=== PATIENT | female | born 1945 | race Caucasian/White ===

== ENCOUNTER 2016-04-03 15:45 | Inpatient (IN) | payer MEDICARE ==
[2016-04-03] MEDS ORDERED: HumaLOG 300 UNITS/3 ML VIAL SC PRN (17:42)
[2016-04-03] MEDS ORDERED: Dextrose 50% Abboject 50 ML SYRINGE IVP PRN (17:55)
[2016-04-03] MEDS ORDERED: Dextrose 5% in Water 1,000 ML IV PRN (17:55)
[2016-04-03] MEDS: HYDROcodone/Acetaminophen 7.5/325 mg Tablet PO PRN (20:08)
[2016-04-03] MEDS ORDERED: Levemir Flexpen 100 UNITS/ML PEN SC SCH (21:00)
[2016-04-03] MEDS ORDERED: Non-Formulary Item 1 EACH (Insulin Glargine,Hum.Rec.Anlog [Lantus Solostar] 25 UNIT) SQ SCH (21:00)
[2016-04-03] MEDS: fentaNYL 50 mcg/hour Patch TD SCH (21:28)
[2016-04-03] MEDS: Gabapentin 100 MG CAP PO SCH (21:28)
--- NOTE | 2016-04-04 00:32 | HP ---
Admitted to [facility] on 04/03/2016 to extended care. CHIEF COMPLAINT: Weakness and wound on right leg. PRESENT ILLNESS: Patient is a 70-year-old white female who has a history of type 2 diabetes mellitu s that is insulin requiring, complicated by diabetic nephropathy, leaving her with severe chronic ki dney disease. She also has hypertension, history of recurrent DVTs, and pulmonary emboli for which she has been on Coumadin. She also has a history of IVC filtration device placed over 5 years ago. She has a history of chronic venous ulcer of the right lower extremity that dates back to 1995 and has never healed. Patient lives alone and has been independent of her ADLs. She has been on long-t erm Coumadin due to these recurrent DVT and pulmonary emboli. Patient was admitted to the hospital at [facility] from 03/20/2016 until 04/03/2016. She entered the hospital because of a marked prolongation of her INR with reading of 13. She had had a fall 2 days previously and had bruised her right thigh area and the right shoulder and had sustaine d a nose bleed. She also had been noticing some bleeding from the chronic ulcer on her right leg. The patient was referred to the hospital where she was admitted and the supratherapeutic INR was man aged with vitamin K and discontinuation of the Coumadin. During that admission, she initially was n oted to have a little mild hematuria and some bleeding from her wound that had stopped and nose blee d that had stopped. Also, during the admission, her severe chronic renal disease progressed with ac bridgette failure that did not respond to cautious hydration. She was also had a severe anemia of her chr onic kidney disease and also had an acidosis from the renal failure. Her programming coordinator, Dr. Tong ty had seen her on a previous admission in February for which she was discharged on 03/08/2016 for c ellulitis of her right leg. During that admission, her venous Doppler of the leg showed no evidence of DVT. She was in renal failure and severely hyperkalemic. She required dialysis one time then f or correction of the severe hyperkalemia. During that most of her hospitalization from which she wa s discharged on 04/03/2016, the chronic renal failure had progressed requiring initiation of hemodia lysis that was started on 03/28/2016. Prior to that, Dr. Duran, surgeon placed a tunneled hemodia lysis catheter in the right upper chest into the internal jugular. Also the ulcer on her right leg was biopsied and path reported that showed fragments of benign skin with granulation tissue ulcerati on. There is no dysplasia nor malignancy identified. Patient is scheduled to receive hemodialysis on Friday, Friday, and Friday, last dialysis was on today 04/03/2016, patient received 2 units of blood during the initial dialysis on 03/28/2016, she also is receiving PhosLo at is calcium acetate for her hyperparathyroidism some induced from the chronic renal failure and she is receiving Procri t 5000 units IV with her dialysis. During the hospitalization, she underwent a renal ultrasound [facility] showed kidney size normal. There was no evidence of any masses, nor evidence of any hydronephros is. She underwent an echocardiogram that showed left atrial enlargement, normal left ventricular sy stolic function, moderate mitral regurgitation, moderate tricuspid regurgitation and moderate aortic insufficiency. Her ejection fraction was 50-55%. Patient was referred to us at [facility] for further therapy due to her severe deconditioning and also for continu ed wound care. At present, the wound is being cared for with gentle cleansing and application of Aq uacel covered with a Mepilex on a daily basis. The patient was interviewed soon after her admission and was able to review with the above history w jennifer me. She said she is living at home and been doing well up until the fall and then finding out a bout this marked elevation of her INR. Patient's plans are to return to her home and live independe ntly. She said that her Coumadin has been stopped and she has not been placed on any anticoagulants due to her recommendations for now from her programming coordinator, Dr. De La Cruz. PAST MEDICAL HISTORY: See present illness. Patient has diabetes mellitus type 2 that is insulin-de pendent, complicated by nephropathy, venous insufficiency of the lower extremities, complicated by c hronic stasis dermatitis and chronic venous ulcer on the right leg since she has had since 1995. Th is has been managed in a variety of ways, different wound care. A trial of compression wraps, trial of hyperbaric treatment, and previous biopsies were negative for malignancy and most recent biopsy on 03/28/2016, negative for any malignancy. Patient says at times, she will get a little better miguel angel n she gets a little worse. Right now, she is doing better. Her swelling is better since she has be en in the hospital. Patient also has a history of recurrent DVTs of the lower extremities. This, Angie Pascual continued the dictation history and physical on Lian Marrufo, patient also has had pulmo nary embolism and has had an IVC filtration device placed over 5 years ago. She has been on Coumadi n for many years for which was stopped during this most recent admission due to the fall and the ble eding and the supratherapeutic INR. She has severe chronic kidney disease for which she required a single dialysis for hyperkalemia at the end of 02/2016 and now has been started on dialysis on , Friday and Friday on 03/28/2016 via a dialysis catheter was tunneled in the right internal jug ular. Patient has a history of pulmonary nodules for which she has been on care of Dr. Bruner, pul strategy planning consultant has had biopsies which have been negative. PET scans of these areas have not been hot. Patient has had a cholecystectomy, thyroidectomy, tubal ligation. Patient has a history of chronic low back pain from spondylosis and severe arthritis of the knees. She is under the care of Dr. Marek woods, pain management doctor and has been on Fentanyl patch for many years to help control this p ain. PRESENT MEDICINES: Simvastatin 40 mg at bedtime, Epogen 5000 units IV push Friday, Friday, and rid with her dialysis PhosLo (calcium and acetate 1334 mg t.i.d. with meals), Neurontin 100 mg t.i .d., Diflucan 100 mg first 7 days, Levemir 25 units daily at 9:00 p.m., Humalog before meals per mil d sliding scale, Procardia 60 mg daily, levothyroxine 137 mcg daily, pantoprazole 40 mg b.i.d., Rabia Lax 17 grams in 8 ounces of water daily soap, zolpidem 5 mg at bedtime, fentanyl patch 50 mcg apply to the skin and change every third day. At home, patient was using Dilaudid 4 mg every 4 hours as n eeded for pain, usually said she take 2 or 3 day as needed. During her hospitalization, she was rec eiving hydrocodone/acetaminophen 7.5/325 one every 4 hours as needed for pain and also she was recei ving cyclobenzaprine 5 mg t.i.d. p.r.n. spasms. ALLERGIES: No known allergies. REVIEW OF SYSTEMS: Patient said she has lost maybe around 15 pounds over the last few weeks. Nelda alicea said she has lost maybe 15 pounds over the last few weeks with these hospitalizations. She has h ad no fever. Head and Neck: No complaints. No problems with her eyes. Pulmonary: No shortness o f breath. Cardiovascular: No chest pain. Gastrointestinal: No nausea or vomiting, no change in b owel habits. Appetite has been good. : No complaints. Musculoskeletal: Patient said she has b een a little sore over the right shoulder and some in the neck. Initially after her fall, these wer e x-rayed and no fractures were seen. This is getting better and the bruised area on the shoulder a nd the leg are improving. ADLs: Patient is independent of her ADLs. HABITS: Alcohol none. Tobacco none. SOCIAL HISTORY: Patient is single, has a daughter who lives alone. PHYSICAL EXAMINATION: GENERAL: Shows a very pleasant 70-year-old white female, who is sitting on the edge of her bed. Sh e is alert, talkative, oriented x3, appears comfortable and in no distress. VITAL SIGNS: Shows a temperature of 97.6, pulse 78, respirations 18, O2 sat 97% on room air, blood pressure 147/89, her weight is 185. HEAD: Normocephalic and atraumatic. EYES: Pupils are equal, round, and reactive. Sclerae nonicteric. EARS: TMs are clear. NOSE: Normal. MOUTH AND THROAT: Normal. NECK: Carotids are equal and strong, no bruits. Thyroid not enlarged right upper anterior chest. Patient has a tunneled dialysis catheter with overlying dressing is surrounding the area is clean. LUNGS: Clear. HEART: Regular rate, no murmurs. ABDOMEN: Soft with no organomegaly, nor areas of tenderness. EXTREMITIES: There is no pitting edema of the lower extremities. She has chronic stasis changes wi th a slight bluish discoloration of the skin and some little scaling on the right lower leg over the junction of middle and distal third medially. She has an ovoid shape chronic wound that measures 1 x 2 cm that has a good granulation base and there is no measurable depth. There is no surrounding redness nor tenderness. NEUROLOGIC: The patient is alert and oriented x3 with generalized weakness, but no focal weakness. IMPRESSION: 1. Generalized weakness and deconditioning. 2. Acute renal failure on severe chronic kidney disease. A. Required initiation of hemodialysis on 03/28/2016 and scheduled to continue this on Friday, , and Friday. B. Complicated by anemia of chronic renal disease for which she received a transfusion of 2 units of blood on 03/28/2016 with dialysis and is receiving Epogen 5000 units with dialysis IV. C. Complicated by hyperparathyroidism for which she is on PhosLo (calcium acetate.) 3. 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 A. On Coumadin for many years and had an inferior vena cava filtration device placed greater than 5 years ago. Coumadin was stopped on 03/20/2016 due to INR of 13 and some nosebleed and mild hematur ia and bleeding from her wound on her leg. B. Her anticoagulants have not been restarted due to her recommendations of her programming coordinator. 4. Hospitalization from 03/20/2016 until 04/03/2016 at [facility] for a supratherapeutic INR of 13 requiring vitamin K and discontinuation of Coumadin, complicated by bleeding from the nos e from her leg wound and mild hematuria all that has stopped. A. Acute renal failure on severe chronic kidney disease, requiring initiation of hemodialysis on . B. Placement of tunneled hemodialysis catheter in the right internal jugular and biopsy of the righ t leg wound that was benign with no malignancy or dysplasia 03/28/2016. C. Fall with contusion of the right arm and leg, no fractures, bruising are gradually resolving. 5. Diabetes type 2, insulin requiring. A. Complicated by diabetic nephropathy. 6. Chronic venous ulcer on the right leg. A. Present stents since 1995. B. Biopsy on 03/28/2016 showed no evidence of malignancy or dysplasia with benign changes. 7. Hypercholesterolemia. 8. Hypertension. 9. Hypothyroidism. 10. Gastroesophageal reflux. 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 12. Severe arthritis of the knees. 13. Chronic pain from her spondylosis of the LS spine, severe arthritis of the knees to be under e care of Dr. Collado, pain management physician for which she has been on fentanyl and Dilaudid for breakthrough pain at home in its place. She is using the hydrocodone while in the hospital [facility] seems to be working well. PLAN: Patient has been admitted for physical therapy in an effort to try to improve her general str ength and deconditioning such that she can return to independent living and she will need to be cont inue her dialysis on MWF arrangements for transportation are being worked out. We will continue pre sent wound care to the leg and a cleansing gently applying Aquacel covered by Mepilex. We will cont inue her routine medications. We will continue her pain medication and for now, we will use a fenta nyl patch and we use a hydrocodone/acetaminophen 7.5/325 every 4 hours if needed, which seemed to crenshaw ve been working well. CODE STATUS: FULL CODE.
[2016-04-04] MEDS: HYDROcodone/Acetaminophen 7.5/325 mg Tablet PO PRN ×3 (04:21→22:45)
[2016-04-04] MEDS: Levothyroxine Sodium 112 MCG TAB PO SCH (05:44)
[2016-04-04] MEDS: Levothyroxine Sodium 25 MCG TAB PO SCH (05:44)
[2016-04-04] MEDS: Fluconazole 100 MG TAB PO SCH (08:44)
[2016-04-04] MEDS: NIFEdipine XL 30 MG TAB PO SCH (08:44)
[2016-04-04] MEDS: Gabapentin 100 MG CAP PO SCH ×3 (08:44→22:48)
[2016-04-04] MEDS: Calcium Acetate 667 MG CAP PO SCH ×3 (08:44→17:12)
[2016-04-04] MEDS ORDERED: FLU VACC TS2016-17(65YR +) 0.5 ML SYRINGE IM ONE (09:00)
[2016-04-04] MEDS ORDERED: Polyethylene Glycol 3350 17 GM Packet PO SCH (09:00)
[2016-04-04] MEDS ORDERED: Non-Formulary Item 1 EACH (Levothyroxine Sodium [Synthroid] 137 MCG) PO SCH (09:00)
[2016-04-04 09:44] LABS: Hemoglobin A1c 7.2 % (4.0-6.0)
[2016-04-04 09:46] LABS: Anion Gap 17 mmol/L (10-20); BUN (Urea Nitrogen) 23 mg/dL (9.8-20.1); Calc. Creatinine Clearance 29 mL/min (70-130); Calcium 9.7 mg/dL (7.8-10.44); Carbon Dioxide 28 mmol/L (23-31); Chloride 98 mmol/L (98-107); Estimated GFR-MDRD 20; Glucose 61 mg/dL (80-115); Potassium 3.8 mmol/L (3.5-5.1); Sodium 139 mmol/L (136-145)
[2016-04-04 09:48] LABS: Band 7 % (5-11); Hemoglobin 11.3 g/dL (12.0-16.0); Lymphocytes 12 % (21-51); MDiff Complete? YES; Mean Corpuscular HGB CONC 30.8 g/dL (32.0-36.0); Mean Corpuscular Hemoglobin 29.2 pg (27.0-31.0); Mean Corpuscular Volume 94.9 fl (81.0-99.0); Mean Platelet Volume 7.7 fL (7.4-10.4); Monocytes 9 % (0-10); Neutrophil 71 % (42-75); PLT Morphology Comment Appears Adequate; Platelet Count 182 thou/uL (130-400); RBC Distribution Width 13.8 % (11.5-14.5); Red Blood Cell (RBC) Count 3.87 mill/uL (4.20-5.40); White Blood Cell (WBC) Count 7.1 thou/uL (4.8-10.8)
--- NOTE | 2016-04-04 12:15 | PRG ---
DATE OF SERVICE: 04/04/2016 SUBJECTIVE: The patient said she did not rest well last night. She did not ask her Ambien to help her sleep, it was too late. The patient said this morning she feels okay. Her legs are doing okay. She is having no trouble with breathing. OBJECTIVE: GENERAL: The patient is sitting up in bed, is alert and appears comfortable in no distress. VITAL SIGNS: Show a temperature of 97.9, pulse 82, respirations 16, O2 sat 95%, last evening pressu re was up to 185/92. This morning's pressure is pending. LUNGS: Clear. HEART: Regular rate. EXTREMITIES: Patient has a mild stasis changes to the skin with some scaling and dark discoloration . The patient's dressing over the chronic venous ulcer over the right lower leg and. SKIN: Her tunneled dialysis catheter in the right upper chest. There is no surrounding redness. ASSESSMENT: 1. Generalized weakness and deconditioning. A. PT and OT will begin today. 2. Acute renal failure on severe chronic kidney disease. A. Required initiation of hemodialysis on 03/28/2016 and scheduled to continue this on Friday, , and Friday. B. Complicated by anemia of chronic renal disease for which she received a transfusion of 2 units of blood on 03/28/2016 with dialysis and is receiving Epogen 5000 units with dialysis IV. C. Complicated by hyperparathyroidism for which she is on PhosLo (calcium acetate.). 3. 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 A. On Coumadin for many years and had an inferior vena cava filtration device placed greater than 5 years ago. Coumadin was stopped on 03/20/2016 due to INR of 13 and some nosebleed and mild hematur ia and bleeding from her wound on her leg. B. Her anticoagulants have not been restarted due to her recommendations of her dry wall finisher. 4. Hospitalization from 03/20/2016 until 04/03/2016 at [facility] for a supratherapeutic INR of 13 requiring vitamin K and discontinuation of Coumadin, complicated by bleeding from the nos e from her leg wound and mild hematuria all that has stopped. A. Acute renal failure on severe chronic kidney disease, requiring initiation of hemodialysis on . B. Placement of tunneled hemodialysis catheter in the right internal jugular and biopsy of the righ t leg wound that was benign with no malignancy or dysplasia 03/28/2016. C. Fall with contusion of the right arm and leg, no fractures, bruising are gradually resolving. 5. Diabetes type 2, insulin requiring. A. Complicated by diabetic nephropathy. 6. Chronic venous ulcer on the right leg. A. Present stents since 1995. B. Biopsy on 03/28/2016 showed no evidence of malignancy or dysplasia with benign changes. 7. Hypercholesterolemia. 8. Hypertension. 9. Hypothyroidism. 10. Gastroesophageal reflux. 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 12. Severe arthritis of the knees. 13. Chronic pain from her spondylosis of the LS spine, severe arthritis of the knees to be under th e care of Dr. Collado, pain management physician for which she has been on fentanyl and Dilaudid for breakthrough pain at home in its place. She is using the hydrocodone while in the hospital [facility] seems to be working well. PLAN: The patient was started her PT and OT today. Continue present medicines. Patient is schedul ed for dialysis tomorrow. We will arrange for hemoglobin A1c and she had been having some low sugar s in the morning. We reduced her Levemir to 20 units.
[2016-04-04] MEDS ORDERED: Levemir Flexpen 100 UNITS/ML PEN SC SCH (21:00)
[2016-04-04] MEDS: Zolpidem Tartrate 5 MG TAB PO PRN (22:52)
[2016-04-05] MEDS: Levothyroxine Sodium 25 MCG TAB PO SCH (06:23)
[2016-04-05] MEDS: Levothyroxine Sodium 112 MCG TAB PO SCH (06:23)
[2016-04-05] MEDS: Gabapentin 100 MG CAP PO SCH ×3 (07:18→20:24)
[2016-04-05] MEDS: Fluconazole 100 MG TAB PO SCH (07:18)
[2016-04-05] MEDS: Calcium Acetate 667 MG CAP PO SCH ×3 (07:18→17:43)
[2016-04-05] MEDS: Docusate 100 MG CAP PO SCH (07:19)
[2016-04-05] MEDS: NIFEdipine XL 30 MG TAB PO SCH (07:19)
[2016-04-05] MEDS: HYDROcodone/Acetaminophen 7.5/325 mg Tablet PO PRN ×2 (07:19→20:25)
--- NOTE | 2016-04-05 10:03 | PRG ---
DATE OF SERVICE: 04/05/2016 SUBJECTIVE: The patient said she is feeling a little better today, although her sugar was low again this morning. Her Levemir had been reduced to 20 units, but in view of her records, the dietitian noticed that she had not been receiving the Levemir while at [facility] due to her chroni c severe renal disease, initiation of dialysis. The patient has had a snack and also her breakfast. Her sugars are up and she is feeling fine. OBJECTIVE: The patient is alert and appears comfortable in no distress. Her blood pressure is 153/ 78, O2 sat 96%, respirations 18, pulse 68, temperature 97.8. Lungs are clear. Heart, regular rate. Lower extremities, no edema. There are chronic stasis changes with dark discoloration, a little m ild scaling. The chronic venous ulcer, right lower leg is stable. Her FBS this morning was 42, but is up to 60 after a snack. Hemoglobin A1c 7.2 ASSESSMENT: 1. Generalized weakness and deconditioning. A. PT and OT will begin today. B. Gradual improvement as of 04/05/2016. 2. Acute renal failure on severe chronic kidney disease. A. Required initiation of hemodialysis on 03/28/2016 and scheduled to continue this on Friday, Friday, and Friday. B. Complicated by anemia of chronic renal disease for which she received a transfusion of 2 unit s of blood on 03/28/2016 with dialysis and is receiving Epogen 5000 units with dialysis IV. C. Complicated by hyperparathyroidism for which she is on PhosLo (calcium acetate.). 3. 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 A. On Coumadin for many years and had an inferior vena cava filtration device placed greater than 5 years ago. Coumadin was stopped on 03/20/2016 due to INR of 13 and some nosebleed and mild hematuria and bleeding from her wound on her leg. B. Her anticoagulants have not been restarted due to her recommendations of her supervisor special education. 4. Hospitalization from 03/20/2016 until 04/03/2016 at [facility] for a supratherapeutic INR of 13 requiring vitamin K and discontinuation of Coumadin, complicated by bleeding from the nose and from her leg wound and mild hematuria; all that has stopped. A. Acute renal failure on severe chronic kidney disease, requiring initiation of hemodialysis o n 03/28/2016. B. Placement of tunneled hemodialysis catheter in the right internal jugular and biopsy of the right leg wound that was benign with no malignancy or dysplasia 03/28/2016. C. Fall with contusion of the right arm and leg, no fractures, bruising are gradually resolving . 5. Diabetes type 2, insulin requiring. A. Complicated by diabetic nephropathy. B. Well controlled. Presently too tightly controlled due to the initiation of dialysis for her end-stage renal disease. Complicated by some hypoglycemic episodes as of 04/05/2016. 6. Chronic venous ulcer on the right leg. A. Present stents since 1995. B. Biopsy on 03/28/2016 showed no evidence of malignancy or dysplasia with benign changes. 7. Hypercholesterolemia. 8. Hypertension. 9. Hypothyroidism. 10. Gastroesophageal reflux. 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 12. Severe arthritis of the knees. 13. Chronic pain from her spondylosis of the LS spine, severe arthritis of the knees to be under the care of Dr. Collado, pain management physician for which she has been on fentanyl and Dilaudid for b reakthrough pain at home in its place. She is using the hydrocodone while in the hospital which seems to be working well. PLAN: The patient is scheduled to undergo dialysis today. Transportation has been arranged. I nelly l stop the Levemir and just use sliding scale.
[2016-04-05] MEDS: Zolpidem Tartrate 5 MG TAB PO PRN (22:07)
[2016-04-06] MEDS: HYDROcodone/Acetaminophen 7.5/325 mg Tablet PO PRN (04:08)
[2016-04-06] MEDS: Levothyroxine Sodium 112 MCG TAB PO SCH (05:26)
[2016-04-06] MEDS: Levothyroxine Sodium 25 MCG TAB PO SCH (05:26)
[2016-04-06] MEDS: Fluconazole 100 MG TAB PO SCH (08:38)
[2016-04-06] MEDS: NIFEdipine XL 30 MG TAB PO SCH (08:38)
[2016-04-06] MEDS: Docusate 100 MG CAP PO SCH (08:39)
[2016-04-06] MEDS: Calcium Acetate 667 MG CAP PO SCH ×3 (08:39→17:16)
[2016-04-06] MEDS: Gabapentin 100 MG CAP PO SCH ×3 (08:39→21:08)
[2016-04-06] MEDS: HumaLOG 300 UNITS/3 ML VIAL SC PRN ×3 (08:39→17:43)
[2016-04-06] MEDS ORDERED: fentaNYL 50 mcg/hour Patch TD SCH (09:00)
--- NOTE | 2016-04-06 14:29 | PRG ---
DATE OF SERVICE: 04/06/2016 SUBJECTIVE: The patient said she is feeling good today. Yesterday was a long day with her trip to [place] for her dialysis. The patient said she is feeling good today. OBJECTIVE: GENERAL: The patient is sitting up in bed with her feet elevated in the bed. She looks very comfor table and in no distress. VITAL SIGNS: Her temperature is 98.2, pulse 77, blood pressure 155/71, respirations 18, O2 saturati on 98% on room air. LUNGS: Clear. HEART: Regular rate. EXTREMITIES: The patient has chronic stasis changes on the legs, but there is no scaling. SKIN: The skin is just chronically discolored, brownish bluish hue. The chronic venous ulcer on th e medial aspect of the right lower leg looks better. There is no surrounding redness. The wounds s eemed very superficial and the base is clean. Patient's FBS yesterday morning was 70, through the day before supper 141, at bedtime 269, and this morning was 337. ASSESSMENT: 1. Generalized weakness and deconditioning. A. PT and OT will begin today. B. Gradual improvement as of 04/06/2016. 2. Acute renal failure on severe chronic kidney disease. A. Required initiation of hemodialysis on 03/28/2016 and scheduled to continue this on Friday, Friday, and Friday. B. Complicated by anemia of chronic renal disease for which she received a transfusion of 2 unit s of blood on 03/28/2016 with dialysis and is receiving Epogen 5000 units with dialysis IV. C. Complicated by hyperparathyroidism for which she is on PhosLo (calcium acetate.). 3. 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 A. On Coumadin for many years and had an inferior vena cava filtration device placed greater than 5 years ago. Coumadin was stopped on 03/20/2016 due to INR of 13 and some nosebleed and mild hematuria and bleeding from her wound on her leg. B. Her anticoagulants have not been restarted due to her recommendations of her shift production associate. 4. Hospitalization from 03/20/2016 until 04/03/[address] [facility] for a supratherapeutic INR of 13 requiring vitamin K and discontinuation of Coumadin, complicated by bleeding from the nose and from her leg wound and mild hematuria; all that has stopped. A. Acute renal failure on severe chronic kidney disease, requiring initiation of hemodialysis o n 03/28/2016. B. Placement of tunneled hemodialysis catheter in the right internal jugular and biopsy of the right leg wound that was benign with no malignancy or dysplasia 03/28/2016. C. Fall with contusion of the right arm and leg, no fractures, bruising are gradually resolving . 5. Diabetes type 2, insulin requiring. A. Complicated by diabetic nephropathy. B. Since Levemir was stopped yesterday, her sugars are running too high as of 04/06/2016. 6. Chronic venous ulcer on the right leg. A. Present stents since 1995. B. Biopsy on 03/28/2016 showed no evidence of malignancy or dysplasia with benign changes. C. Improved as of 04/06/2016. 7. Hypercholesterolemia. 8. Hypertension. 9. Hypothyroidism. 10. Gastroesophageal reflux. 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 12. Severe arthritis of the knees. 13. Chronic pain from her spondylosis of the LS spine, severe arthritis of the knees to be under the care of Dr. Collado, pain management physician for which she has been on fentanyl and Dilaudid for b reakthrough pain at home in its place. She is using the hydrocodone while in the hospital which seems to be working well. PLAN: Continue present care. Continue physical therapy. Continue present wound care to the venous ulcer. The additional rest with elevation of the leg has help allow further healing of the venous ulcer. We will restart patient on Levemir. We will start her on 10 units in the evening. Patient' s dialysis went well yesterday and will be continued on Friday, Friday and Friday. Next schedule will be on 04/08/2016.
[2016-04-06] MEDS: Levemir Flexpen 100 UNITS/ML PEN SC SCH (21:08)
[2016-04-06] MEDS: fentaNYL 50 mcg/hour Patch TD SCH (21:11)
[2016-04-06] MEDS: Zolpidem Tartrate 5 MG TAB PO PRN (22:22)
[2016-04-07] MEDS: Levothyroxine Sodium 25 MCG TAB PO SCH (05:15)
[2016-04-07] MEDS: Levothyroxine Sodium 112 MCG TAB PO SCH (05:15)
[2016-04-07] MEDS: HumaLOG 300 UNITS/3 ML VIAL SC PRN ×3 (08:19→17:18)
[2016-04-07] MEDS: NIFEdipine XL 30 MG TAB PO SCH (08:20)
[2016-04-07] MEDS: Gabapentin 100 MG CAP PO SCH ×3 (08:20→20:36)
[2016-04-07] MEDS: Docusate 100 MG CAP PO SCH (08:20)
[2016-04-07] MEDS: Fluconazole 100 MG TAB PO SCH (08:20)
[2016-04-07] MEDS: Calcium Acetate 667 MG CAP PO SCH ×3 (08:21→17:18)
[2016-04-07] MEDS: HYDROcodone/Acetaminophen 7.5/325 mg Tablet PO PRN (18:11)
[2016-04-07] MEDS: Levemir Flexpen 100 UNITS/ML PEN SC SCH (20:37)
[2016-04-07] MEDS: Zolpidem Tartrate 5 MG TAB PO PRN (22:50)
[2016-04-08] MEDS: Levothyroxine Sodium 25 MCG TAB PO SCH (06:01)
[2016-04-08] MEDS: Levothyroxine Sodium 112 MCG TAB PO SCH (06:01)
[2016-04-08] MEDS: NIFEdipine XL 30 MG TAB PO SCH (08:06)
[2016-04-08] MEDS: Gabapentin 100 MG CAP PO SCH ×3 (08:06→20:44)
[2016-04-08] MEDS: Calcium Acetate 667 MG CAP PO SCH ×3 (08:06→16:22)
[2016-04-08] MEDS: Docusate 100 MG CAP PO SCH (08:06)
[2016-04-08] MEDS: Fluconazole 100 MG TAB PO SCH (08:07)
[2016-04-08] MEDS: HYDROcodone/Acetaminophen 7.5/325 mg Tablet PO PRN ×2 (09:02→17:08)
--- NOTE | 2016-04-08 14:59 | PRG ---
DATE OF SERVICE: 04/08/2016 SUBJECTIVE: The patient said she is doing well. She said she celebrated her 71th birthday on [place] [place]. She is getting prepared to go to dialysis this morning. The patient said she is feeling good. Her legs are doing good. At the time she had a tunneled dialysis catheter placed she also h ad an AV fistula placed in the left arm. She said this is doing good other than just a little mild soreness. Overall she is improving. OBJECTIVE: The patient is sitting on the edge of her bed with her right leg elevated on the bed. S he looks very comfortable, in no distress. Her temperature is 96.9, pulse 73, blood pressure 140/73 , respirations 18, O2 sat 97%. Lungs are clear. Heart, regular rate. Extremities; there is no raul ma. She does have the chronic stasis changes, but this is unchanged. The wound on the right lower leg venous ulcer is slowly improving. The patient's AV fistula left arm is doing well. There is no redness. Her FBS this morning was 159. Yesterday morning it was 219. She was recently restarted on Levemir, but only on 10 units. ASSESSMENT: 1. Generalized weakness and deconditioning. A. PT and OT will begin today. B. Gradual improvement as of 04/08/2016. 2. Acute renal failure on severe chronic kidney disease. A. Required initiation of hemodialysis on 03/28/2016 and scheduled to continue this on Friday, Friday, and Friday. B. Complicated by anemia of chronic renal disease for which she received a transfusion of 2 unit s of blood on 03/28/2016 with dialysis and is receiving Epogen 5000 units with dialysis IV. C. Complicated by hyperparathyroidism for which she is on PhosLo (calcium acetate.). 3. 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 A. On Coumadin for many years and had an inferior vena cava filtration device placed greater than 5 years ago. Coumadin was stopped on 03/20/2016 due to INR of 13 and some nosebleed and mild hematuria and bleeding from her wound on her leg. B. Her anticoagulants have not been restarted due to her recommendations of her bin piler. 4. Hospitalization from 03/20/2016 until 04/03/2016 at [facility] for a supratherapeutic INR of 13 requiring vitamin K and discontinuation of Coumadin, complicated by bleeding from the nose and from her leg wound and mild hematuria; all that has stopped. A. Acute renal failure on severe chronic kidney disease, requiring initiation of hemodialysis o n 03/28/2016. B. Placement of tunneled hemodialysis catheter in the right internal jugular and biopsy of the right leg wound that was benign with no malignancy or dysplasia 03/28/2016. Also placement of an AV fistula in the l eft arm on 03/28/2016. C. Fall with contusion of the right arm and leg, no fractures, bruising are gradually resolving . 5. Diabetes type 2, insulin requiring. A. Complicated by diabetic nephropathy. B. Since Levemir was stopped yesterday, her sugars are running too high as of 04/06/2016. 6. Chronic venous ulcer on the right leg. A. Present stents since 1995. B. Biopsy on 03/28/2016 showed no evidence of malignancy or dysplasia with benign changes. C. Improved as of 04/06/2016. 7. Hypercholesterolemia. 8. Hypertension. 9. Hypothyroidism. 10. Gastroesophageal reflux. 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 12. Severe arthritis of the knees. 13. Chronic pain from her spondylosis of the LS spine, severe arthritis of the knees to be under the care of Dr. Collado, pain management physician for which she has been on fentanyl and Dilaudid for b reakthrough pain at home in its place. She is using the hydrocodone while in the hospital which seems to be working well. PLAN: Overall, the patient is doing well. We will continue present care. Continue dialysis. Cont inue physical therapy.
[2016-04-08] MEDS ORDERED: HumaLOG 300 UNITS/3 ML VIAL SC SCH (20:30)
[2016-04-08] MEDS ORDERED: Levemir Flexpen 100 UNITS/ML PEN SC SCH (21:00)
[2016-04-08] MEDS: Zolpidem Tartrate 5 MG TAB PO PRN (22:32)
[2016-04-09] MEDS: Levothyroxine Sodium 25 MCG TAB PO SCH (05:24)
[2016-04-09] MEDS: Levothyroxine Sodium 112 MCG TAB PO SCH (05:24)
[2016-04-09] MEDS: HYDROcodone/Acetaminophen 7.5/325 mg Tablet PO PRN (05:24)
[2016-04-09] MEDS: Calcium Acetate 667 MG CAP PO SCH ×3 (08:27→17:16)
[2016-04-09] MEDS: Gabapentin 100 MG CAP PO SCH ×3 (08:27→21:23)
[2016-04-09] MEDS: NIFEdipine XL 30 MG TAB PO SCH (08:28)
[2016-04-09] MEDS: Fluconazole 100 MG TAB PO SCH (08:29)
[2016-04-09] MEDS: Docusate 100 MG CAP PO SCH (08:32)
[2016-04-09] MEDS: HumaLOG 300 UNITS/3 ML VIAL SC PRN (12:43)
[2016-04-09] MEDS: fentaNYL 50 mcg/hour Patch TD SCH (21:21)
[2016-04-09] MEDS: Levemir Flexpen 100 UNITS/ML PEN SC SCH (21:24)
[2016-04-09] MEDS: Zolpidem Tartrate 5 MG TAB PO PRN (21:26)
[2016-04-10] MEDS: HYDROcodone/Acetaminophen 7.5/325 mg Tablet PO PRN ×3 (03:00→21:07)
[2016-04-10] MEDS: Levothyroxine Sodium 25 MCG TAB PO SCH (05:15)
[2016-04-10] MEDS: Levothyroxine Sodium 112 MCG TAB PO SCH (05:15)
[2016-04-10] MEDS: Calcium Acetate 667 MG CAP PO SCH ×3 (08:32→17:11)
[2016-04-10] MEDS: NIFEdipine XL 30 MG TAB PO SCH (08:32)
[2016-04-10] MEDS: Docusate 100 MG CAP PO SCH (08:33)
[2016-04-10] MEDS: Fluconazole 100 MG TAB PO SCH (08:34)
[2016-04-10] MEDS: Gabapentin 100 MG CAP PO SCH ×4 (08:34→20:59)
--- NOTE | 2016-04-10 16:14 | PRG ---
DATE OF SERVICE: 04/10/2016 SUBJECTIVE: The patient said she is feeling good today. She said that venous ulcer on her right le g is doing better than it has in a long time. She is scheduled for dialysis today and is prepared t o go. She has not had any more low blood sugar episodes. OBJECTIVE: The patient is sitting up in a bedside chair. She is alert and appears very comfortable and in no distress. Her temperature is 98.1, pulse 78, respirations 20, O2 sat 98% on room air, bl ood pressure 125/58. Lungs are clear. Heart, regular rate. The tunneled IJ in the right upper isha st is clean with no surrounding redness. The AV fistula site in the left arm is healing well. Her extremities have chronic stasis changes. The venous ulcer on the medial aspect of the right lower l eg is improved, it looks superficial, has a good clean red base and is smaller. There is some bridg ing with some fine new epithelial cells over crossing mid portion of the wound, overall looks improv ed. Her FBS this morning was 117. ASSESSMENT: 1. Generalized weakness and deconditioning. A. PT and OT will begin today. B. Gradual improvement as of 04/10/2016. 2. Acute renal failure on severe chronic kidney disease. A. Required initiation of hemodialysis on 03/28/2016 and scheduled to continue this on Friday, Friday, and Friday. B. Complicated by anemia of chronic renal disease for which she received a transfusion of 2 uni ts of blood on 03/28/2016 with dialysis and is receiving Epogen 5000 units with dialysis IV. C. Complicated by hyperparathyroidism for which she is on PhosLo (calcium acetate.). 3. 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 A. On Coumadin for many years and had an inferior vena cava filtration device placed greater than 5 years ago. Coumadin was stopped on 03/20/2016 due to INR of 13 and some nosebleed and mild hematuria and bleeding from her wound on her leg. B. Her anticoagulants have not been restarted due to her recommendations of her repairer wood furniture. 4. Hospitalization from 03/20/2016 until 04/03/[address] [facility] for a supratherapeutic INR of 13 requiring vitamin K and discontinuation of Coumadin, complicated by bleeding from the nose and from her leg wound and mild hematuria; all that has stopped. A. Acute renal failure on severe chronic kidney disease, requiring initiation of hemodialysis o n 03/28/2016. B. Placement of tunneled hemodialysis catheter in the right internal jugular and biopsy of the right leg wound that was benign with no malignancy or dysplasia 03/28/2016. Also placement of an AV fistula in the l eft arm on 03/28/2016. C. Fall with contusion of the right arm and leg, no fractures, bruising are gradually resolving . 5. Diabetes type 2, insulin requiring. A. Complicated by diabetic nephropathy. B. Presently controlled with FBS 117 on the morning of 04/10/2016. 6. Chronic venous ulcer on the right leg. A. Onset 1995. B. Biopsy on 03/28/2016 showed no evidence of malignancy or dysplasia with benign changes. C. Improved as of 04/10/2016. 7. Hypercholesterolemia. 8. Hypertension. 9. Hypothyroidism. 10. Gastroesophageal reflux. 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 12. Severe arthritis of the knees. 13. Chronic pain from her spondylosis of the LS spine, severe arthritis of the knees to be under the care of Dr. Collado, pain management physician for which she has been on fentanyl and Dilaudid for b reakthrough pain at home in its place. She is using the hydrocodone while in the hospital which seems to be working well. A. Controlled as of 04/10/2016. PLAN: Continue present care. Continue the present wound care using the Aquacel and the covering Me pilex. Continue dialysis. Continue physical therapy.
[2016-04-10] MEDS: HumaLOG 300 UNITS/3 ML VIAL SC PRN (17:11)
[2016-04-10] MEDS: Levemir Flexpen 100 UNITS/ML PEN SC SCH (20:59)
[2016-04-10] MEDS: Zolpidem Tartrate 5 MG TAB PO PRN (22:56)
[2016-04-11] MEDS: Levothyroxine Sodium 112 MCG TAB PO SCH (04:51)
[2016-04-11] MEDS: Levothyroxine Sodium 25 MCG TAB PO SCH (04:51)
[2016-04-11] MEDS: Calcium Acetate 667 MG CAP PO SCH ×3 (08:17→16:58)
[2016-04-11] MEDS: Docusate 100 MG CAP PO SCH (08:17)
[2016-04-11] MEDS: Gabapentin 100 MG CAP PO SCH ×3 (08:17→20:28)
[2016-04-11] MEDS: NIFEdipine XL 30 MG TAB PO SCH (08:17)
[2016-04-11] MEDS: HumaLOG 300 UNITS/3 ML VIAL SC PRN ×3 (08:18→17:00)
[2016-04-11] MEDS ORDERED: Ondansetron ODT 4 MG TAB PO PRN (08:42)
--- NOTE | 2016-04-11 14:37 | PRG ---
DATE OF SERVICE: 04/11/2016 SUBJECTIVE: The patient said this morning she is a little nauseated. She thinks it may be related to dialysis yesterday. She said they took a little additional fluid off of her. She did say that 2 of the patient's at dialysis next to her had some of vomiting. She denies any abdominal pain, saman es any diarrhea. OBJECTIVE: The patient is sitting up in bed. She is alert, talkative, appears comfortable and in n o distress. Her temp is 99.3, pulse 80, blood pressure 161/69, respirations 16, O2 sat 92%. Her facundo ngs are clear. Heart, regular rate. Her tunneled IJ in the right chest has no surrounding redness. Her lungs are clear. Heart, regular rate. Abdomen soft, nontender. Her legs have no edema. The wound over the right leg is slowly improving. Her FBS this morning was 281. ASSESSMENT: 1. Generalized weakness and deconditioning. A. PT and OT will begin today. B. Gradual improvement as of 04/11/2016. 2. Acute renal failure on severe chronic kidney disease. A. Required initiation of hemodialysis on 03/28/2016 and scheduled to continue this on Friday, Friday, and Friday. B. Complicated by anemia of chronic renal disease for which she received a transfusion of 2 uni ts of blood on 03/28/2016 with dialysis and is receiving Epogen 5000 units with dialysis IV. C. Complicated by hyperparathyroidism for which she is on PhosLo (calcium acetate.). 3. 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 A. On Coumadin for many years and had an inferior vena cava filtration device placed greater than 5 years ago. Coumadin was stopped on 03/20/2016 due to INR of 13 and some nosebleed and mild hematuria and bleeding from her wound on her leg. B. Her anticoagulants have not been restarted due to her recommendations of her biophysics teacher. 4. Hospitalization from 03/20/2016 until 04/03/2016 at [facility] for a supratherapeutic INR of 13 requiring vitamin K and discontinuation of Coumadin, complicated by bleeding from the nose and from her leg wound and mild hematuria; all that has stopped. A. Acute renal failure on severe chronic kidney disease, requiring initiation of hemodialysis o n 03/28/2016. B. Placement of tunneled hemodialysis catheter in the right internal jugular and biopsy of the right leg wound that was benign with no malignancy or dysplasia 03/28/2016. Also placement of an AV fistula in the l eft arm on 03/28/2016. C. Fall with contusion of the right arm and leg, no fractures, bruising are gradually resolving . 5. Diabetes type 2, insulin requiring. A. Complicated by diabetic nephropathy. B. Presently controlled with FBS 117 on the morning of 04/10/2016. 6. Chronic venous ulcer on the right leg. A. Onset 1995. B. Biopsy on 03/28/2016 showed no evidence of malignancy or dysplasia with benign changes. C. Improved as of 04/10/2016. 7. Hypercholesterolemia. 8. Hypertension. 9. Hypothyroidism. 10. Gastroesophageal reflux. 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 12. Severe arthritis of the knees. 13. Chronic pain from her spondylosis of the LS spine, severe arthritis of the knees to be under the care of Dr. Collado, pain management physician for which she has been on fentanyl and Dilaudid for b reakthrough pain at home in its place. She is using the hydrocodone while in the hospital which seems to be working well. A. Controlled as of 04/10/2016. 14. Some nausea on the morning of 04/11/2016. PLAN: Continue present care. The patient given Zofran oral disintegrating tablet for the nausea. Patient anticipates that she will quickly recover from this and thinks it was just from the dialysis . We will continue to watch her.
[2016-04-11] MEDS: HYDROcodone/Acetaminophen 7.5/325 mg Tablet PO PRN ×2 (18:09→22:38)
[2016-04-11] MEDS: Levemir Flexpen 100 UNITS/ML PEN SC SCH (20:28)
[2016-04-11] MEDS: Zolpidem Tartrate 5 MG TAB PO PRN (22:29)
[2016-04-12] MEDS: HYDROcodone/Acetaminophen 7.5/325 mg Tablet PO PRN ×3 (06:00→22:28)
[2016-04-12] MEDS: Levothyroxine Sodium 25 MCG TAB PO SCH (06:00)
[2016-04-12] MEDS: Levothyroxine Sodium 112 MCG TAB PO SCH (06:00)
[2016-04-12] MEDS: Calcium Acetate 667 MG CAP PO SCH ×3 (08:29→17:07)
[2016-04-12] MEDS: NIFEdipine XL 30 MG TAB PO SCH (08:30)
[2016-04-12] MEDS: Docusate 100 MG CAP PO SCH (08:30)
[2016-04-12] MEDS: Gabapentin 100 MG CAP PO SCH ×3 (08:30→21:12)
--- NOTE | 2016-04-12 17:37 | PRG ---
DATE OF SERVICE: 04/12/2016 SUBJECTIVE: The patient said she is feeling good today. She has had no more of the nausea. The pa tienixon is getting ready to go to dialysis. OBJECTIVE: The patient appears alert, in no distress. Her vital signs show temperature 98.2, pulse 74, blood pressure 158/57, respirations are 18, O2 sat 95% on room air. Her lungs are clear. Hear t, regular rate. Extremities, presently no edema. Nurses report the wound is stable and gradually improving. Her FBS was 141. ASSESSMENT: 1. Generalized weakness and deconditioning. A. Improving as of 04/12/2016. 2. Acute renal failure on severe chronic kidney disease. A. Required initiation of hemodialysis on 03/28/2016 and scheduled to continue this on Friday, Friday, and Friday. B. Complicated by anemia of chronic renal disease for which she received a transfusion of 2 uni ts of blood on 03/28/2016 with dialysis and is receiving Epogen 5000 units with dialysis IV. C. Complicated by hyperparathyroidism for which she is on PhosLo (calcium acetate.). 3. 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 A. On Coumadin for many years and had an inferior vena cava filtration device placed greater than 5 years ago. Coumadin was stopped on 03/20/2016 due to INR of 13 and some nosebleed and mild hematuria and bleeding from her wound on her leg. B. Her anticoagulants have not been restarted due to her recommendations of her structured cabling technician. 4. Hospitalization from 03/20/2016 until 04/03/2016 at [facility] for a supratherapeutic INR of 13 requiring vitamin K and discontinuation of Coumadin, complicated by bleeding from the nose and from her leg wound and mild hematuria; all that has stopped. A. Acute renal failure on severe chronic kidney disease, requiring initiation of hemodialysis o n 03/28/2016. B. Placement of tunneled hemodialysis catheter in the right internal jugular and biopsy of the right leg wound that was benign with no malignancy or dysplasia 03/28/2016. Also placement of an AV fistula in the l eft arm on 03/28/2016. C. Fall with contusion of the right arm and leg, no fractures, bruising are gradually resolving . 5. Diabetes type 2, insulin requiring. A. Complicated by diabetic nephropathy. B. Please put controlled as of 04/12/2016. 6. Chronic venous ulcer on the right leg. A. Onset 1995. B. Biopsy on 03/28/2016 showed no evidence of malignancy or dysplasia with benign changes. C. Improved as of 04/10/2016. 7. Hypercholesterolemia. 8. Hypertension. 9. Hypothyroidism. 10. Gastroesophageal reflux. 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 12. Severe arthritis of the knees. 13. Chronic pain from her spondylosis of the LS spine, severe arthritis of the knees to be under the care of Dr. Collado, pain management physician for which she has been on fentanyl and Dilaudid for b reakthrough pain at home in its place. She is using the hydrocodone while in the hospital which seems to be working well. A. Controlled as of 04/10/2016. 14. Nausea on the morning of 04/11/2016, resolved as of 04/12/2016. PLAN: Continue PT. Continue present wound care. Continue the dialysis on Friday, Friday, and Fr mtz.
[2016-04-12] MEDS: HumaLOG 300 UNITS/3 ML VIAL SC PRN (17:55)
[2016-04-12] MEDS: fentaNYL 50 mcg/hour Patch TD SCH (21:13)
[2016-04-12] MEDS: Levemir Flexpen 100 UNITS/ML PEN SC SCH (21:15)
[2016-04-12] MEDS: Zolpidem Tartrate 5 MG TAB PO PRN (22:28)
[2016-04-13] MEDS: Levothyroxine Sodium 25 MCG TAB PO SCH (05:29)
[2016-04-13] MEDS: Levothyroxine Sodium 112 MCG TAB PO SCH (05:29)
[2016-04-13] MEDS: Gabapentin 100 MG CAP PO SCH ×3 (09:07→20:27)
[2016-04-13] MEDS: Calcium Acetate 667 MG CAP PO SCH ×3 (09:07→16:48)
[2016-04-13] MEDS: Docusate 100 MG CAP PO SCH (09:07)
[2016-04-13] MEDS: NIFEdipine XL 30 MG TAB PO SCH (09:08)
[2016-04-13] MEDS: HumaLOG 300 UNITS/3 ML VIAL SC PRN ×2 (12:38→16:47)
[2016-04-13] MEDS: HYDROcodone/Acetaminophen 7.5/325 mg Tablet PO PRN ×2 (14:12→20:28)
[2016-04-13] MEDS: Levemir Flexpen 100 UNITS/ML PEN SC SCH (20:29)
--- NOTE | 2016-04-13 20:50 | PRG ---
DATE OF SERVICE: 04/13/2016 SUBJECTIVE: The patient said she is feeling better. Yesterday her dialysis she said went well, but they were having some trouble with a tunneled dialysis catheter, said it is not flowing as well as it should be. They did try flushing this. If it continues to have trouble, will be reevaluated. S he is due for her next dialysis on 04/15/2016. OBJECTIVE: The patient is lying in bed with her feet elevated. She looks very comfortable, no dist ress. Her temp 99.3, pulse 85, blood pressure 156/67, respirations 18, O2 sat 94% on room air. Her lungs are clear. Heart, regular rate. A tunneled dialysis catheter in the right IJ has no surroun ding redness, the area is clean. Her lower extremities, there is no edema. The chronic venous ulce r on the right lower leg looks better. It is very clean. It measures about almost 1.5 cm in vertic al height, the width is about a centimeter, overall, smaller and good granulation base, no surroundi ng erythema. ASSESSMENT: 1. Generalized weakness and deconditioning. A. Improving as of 04/13/2016. 2. Acute renal failure on severe chronic kidney disease. A. Required initiation of hemodialysis on 03/28/2016 and scheduled to continue this on Friday, Friday, and Friday. B. Complicated by anemia of chronic renal disease for which she received a transfusion of 2 uni ts of blood on 03/28/2016 with dialysis and is receiving Epogen 5000 units with dialysis IV. C. Complicated by hyperparathyroidism for which she is on PhosLo (calcium acetate.). 3. 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 A. On Coumadin for many years and had an inferior vena cava filtration device placed greater than 5 years ago. Coumadin was stopped on 03/20/2016 due to INR of 13 and some nosebleed and mild hematuria and bleeding from her wound on her leg. B. Her anticoagulants have not been restarted due to her recommendations of her orthopedics pediatric physician. 4. Hospitalization from 03/20/2016 until 04/03/2016 at [facility] for a supratherapeutic INR of 13 requiring vitamin K and discontinuation of Coumadin, complicated by bleeding from the nose and from her leg wound and mild hematuria; all that has stopped. A. Acute renal failure on severe chronic kidney disease, requiring initiation of hemodialysis o n 03/28/2016. B. Placement of tunneled hemodialysis catheter in the right internal jugular and biopsy of the right leg wound that was benign with no malignancy or dysplasia 03/28/2016. Also placement of an AV fistula in the l eft arm on 03/28/2016. C. Fall with contusion of the right arm and leg, no fractures, bruising are gradually resolving . 5. Diabetes type 2, insulin requiring. A. Complicated by diabetic nephropathy. B. Controlled as of 04/13/2016. 6. Chronic venous ulcer on the right leg. A. Onset 1995. B. Biopsy on 03/28/2016 showed no evidence of malignancy or dysplasia with benign changes. C. Improved as of 04/13/2016. 7. Hypercholesterolemia. 8. Hypertension. 9. Hypothyroidism. 10. Gastroesophageal reflux. 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 12. Severe arthritis of the knees. 13. Chronic pain from her spondylosis of the LS spine, severe arthritis of the knees to be under the care of Dr. Collado, pain management physician for which she has been on fentanyl and Dilaudid for b reakthrough pain at home in its place. She is using the hydrocodone while in the hospital which seems to be working well. A. Controlled as of 04/13/2016. PLAN: Continue present wound care. Continue physical therapy. The patient will return to dialysis on 04/15/2016 and her tunneled IJ will be reevaluated then by her dialysis team.
[2016-04-13] MEDS: Zolpidem Tartrate 5 MG TAB PO PRN (22:18)
[2016-04-14] MEDS: Levothyroxine Sodium 25 MCG TAB PO SCH (06:03)
[2016-04-14] MEDS: Levothyroxine Sodium 112 MCG TAB PO SCH (06:03)
[2016-04-14] MEDS: HYDROcodone/Acetaminophen 7.5/325 mg Tablet PO PRN ×2 (08:06→21:11)
[2016-04-14] MEDS: Calcium Acetate 667 MG CAP PO SCH ×3 (08:09→17:06)
[2016-04-14] MEDS: Gabapentin 100 MG CAP PO SCH ×3 (08:10→20:21)
[2016-04-14] MEDS: NIFEdipine XL 30 MG TAB PO SCH (08:10)
[2016-04-14] MEDS: HumaLOG 300 UNITS/3 ML VIAL SC PRN ×3 (08:10→17:06)
[2016-04-14] MEDS: Docusate 100 MG CAP PO SCH (08:10)
[2016-04-14] MEDS: Levemir Flexpen 100 UNITS/ML PEN SC SCH (20:21)
[2016-04-14] MEDS: Zolpidem Tartrate 5 MG TAB PO PRN (22:22)
[2016-04-15] MEDS: Levothyroxine Sodium 112 MCG TAB PO SCH (05:50)
[2016-04-15] MEDS: Levothyroxine Sodium 25 MCG TAB PO SCH (05:50)
[2016-04-15] MEDS: HumaLOG 300 UNITS/3 ML VIAL SC PRN ×2 (08:25→17:09)
[2016-04-15] MEDS: Gabapentin 100 MG CAP PO SCH ×3 (08:26→20:36)
[2016-04-15] MEDS: Docusate 100 MG CAP PO SCH (08:26)
[2016-04-15] MEDS: NIFEdipine XL 30 MG TAB PO SCH (08:26)
[2016-04-15] MEDS: Calcium Acetate 667 MG CAP PO SCH ×3 (08:26→17:09)
[2016-04-15] MEDS: HYDROcodone/Acetaminophen 7.5/325 mg Tablet PO PRN ×3 (08:32→21:45)
--- NOTE | 2016-04-15 14:38 | PRG ---
DATE OF SERVICE: 04/15/2016 SUBJECTIVE: The patient said she is feeling alright. She is preparing to go to dialysis a little l ater this morning. She said they will recheck her dialysis catheter. OBJECTIVE: The patient is sitting up on the edge the bed. Her temperature is 96.5, pulse 79, respi rations 18, O2 sat 99%, blood pressure 163/76. Lungs are clear. Heart, regular rate. The lower ex tremities have the chronic stasis changes, but there is presently no edema, chronic venous ulcer on the right lower leg on the medial aspect is very clean and smaller. The wound continues to be looks better. ASSESSMENT: 1. Generalized weakness and deconditioning. A. Improving as of 04/15/2016. 2. Acute renal failure on severe chronic kidney disease. A. Required initiation of hemodialysis on 03/28/2016 and scheduled to continue this on Friday, Friday, and Friday. B. Complicated by anemia of chronic renal disease for which she received a transfusion of 2 uni ts of blood on 03/28/2016 with dialysis and is receiving Epogen 5000 units with dialysis IV. C. Complicated by hyperparathyroidism for which she is on PhosLo (calcium acetate.). 3. 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 A. On Coumadin for many years and had an inferior vena cava filtration device placed greater than 5 years ago. Coumadin was stopped on 03/20/2016 due to INR of 13 and some nosebleed and mild hematuria and bleeding from her wound on her leg. B. Her anticoagulants have not been restarted due to her recommendations of her fishing rod mechanic. 4. Hospitalization from 03/20/2016 until 04/03/2016 at [facility] for a supratherapeutic INR of 13 requiring vitamin K and discontinuation of Coumadin, complicated by bleeding from the nose and from her leg wound and mild hematuria; all that has stopped. A. Acute renal failure on severe chronic kidney disease, requiring initiation of hemodialysis o n 03/28/2016. B. Placement of tunneled hemodialysis catheter in the right internal jugular and biopsy of the right leg wound that was benign with no malignancy or dysplasia 03/28/2016. Also placement of an AV fistula in the l eft arm on 03/28/2016. C. Fall with contusion of the right arm and leg, no fractures, bruising are gradually resolving . 5. Diabetes type 2, insulin requiring. A. Complicated by diabetic nephropathy. B. Controlled as of 04/15/2016. 6. Chronic venous ulcer on the right leg. A. Onset 1995. B. Biopsy on 03/28/2016 showed no evidence of malignancy or dysplasia with benign changes. C. Continues to improve as of 04/15/2016. 7. Hypercholesterolemia. 8. Hypertension. 9. Hypothyroidism. 10. Gastroesophageal reflux. 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 12. Severe arthritis of the knees. 13. Chronic pain from her spondylosis of the LS spine, severe arthritis of the knees to be under the care of Dr. Collado, pain management physician for which she has been on fentanyl and Dilaudid for b reakthrough pain at home in its place. She is using the hydrocodone while in the hospital which seems to be working well. A. Controlled as of 04/15/2016. PLAN: Continue present care. Continue present wound care. The patient will be attending dialysis today.
[2016-04-15] MEDS: fentaNYL 50 mcg/hour Patch TD SCH (20:36)
[2016-04-15] MEDS: Levemir Flexpen 100 UNITS/ML PEN SC SCH (20:38)
[2016-04-15] MEDS: Zolpidem Tartrate 5 MG TAB PO PRN (23:02)
[2016-04-16 05:00] VITALS: BMI 28.7
[2016-04-16] MEDS: Levothyroxine Sodium 25 MCG TAB PO SCH (05:47)
[2016-04-16] MEDS: Levothyroxine Sodium 112 MCG TAB PO SCH (05:47)
[2016-04-16] MEDS: HYDROcodone/Acetaminophen 7.5/325 mg Tablet PO PRN ×2 (08:11→20:20)
[2016-04-16] MEDS: Docusate 100 MG CAP PO SCH (08:12)
[2016-04-16] MEDS: NIFEdipine XL 30 MG TAB PO SCH (08:12)
[2016-04-16] MEDS: Gabapentin 100 MG CAP PO SCH ×3 (08:12→20:20)
[2016-04-16] MEDS: Calcium Acetate 667 MG CAP PO SCH ×3 (08:13→17:08)
[2016-04-16] MEDS: HumaLOG 300 UNITS/3 ML VIAL SC PRN ×2 (11:49→17:11)
[2016-04-16] MEDS: Levemir Flexpen 100 UNITS/ML PEN SC SCH (20:21)
[2016-04-16] MEDS: Zolpidem Tartrate 5 MG TAB PO PRN (21:57)
[2016-04-17] MEDS: Levothyroxine Sodium 112 MCG TAB PO SCH (05:46)
[2016-04-17] MEDS: Levothyroxine Sodium 25 MCG TAB PO SCH (05:46)
[2016-04-17] MEDS: NIFEdipine XL 30 MG TAB PO SCH (08:08)
[2016-04-17] MEDS: Gabapentin 100 MG CAP PO SCH ×3 (08:09→20:55)
[2016-04-17] MEDS: Docusate 100 MG CAP PO SCH (08:10)
[2016-04-17] MEDS: Calcium Acetate 667 MG CAP PO SCH ×3 (08:10→17:31)
[2016-04-17] MEDS: HYDROcodone/Acetaminophen 7.5/325 mg Tablet PO PRN ×2 (09:14→20:55)
--- NOTE | 2016-04-17 10:43 | PRG ---
DATE OF SERVICE: 04/17/2016 SUBJECTIVE: The patient said that dialysis went well on Friday and she is due to go back today. Th ey are planning to try to rework on her tunneled dialysis catheter to improve its functioning. She also is scheduled to see her surgeon, Dr. Duran, for recheck on the AV fistula in the left arm. O vertang, she is feeling well and is starting to make preparations to probably go home on 04/19/2016. OBJECTIVE: The patient is alert and appears very comfortable and in no distress. Her vital signs s how a temperature of 97.3, pulse 76, respirations 18, O2 sat 95%, blood pressure 157/69. Lungs are clear. Heart, regular rate. Lower legs, the chronic stasis changes. There is no edema. The wound gradually improving. FBS this morning 164. ASSESSMENT: 1. Generalized weakness and deconditioning. A. Improving as of 04/17/2016. 2. Acute renal failure on severe chronic kidney disease. A. Required initiation of hemodialysis on 03/28/2016 and scheduled to continue this on Friday, Friday, and Friday. B. Complicated by anemia of chronic renal disease for which she received a transfusion of 2 uni ts of blood on 03/28/2016 with dialysis and is receiving Epogen 5000 units with dialysis IV. C. Complicated by hyperparathyroidism for which she is on PhosLo (calcium acetate.). 3. 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 A. On Coumadin for many years and had an inferior vena cava filtration device placed greater than 5 years ago. Coumadin was stopped on 03/20/2016 due to INR of 13 and some nosebleed and mild hematuria and bleeding from her wound on her leg. B. Her anticoagulants have not been restarted due to her recommendations of her traffic control signaler. 4. Hospitalization from 03/20/2016 until 04/03/[address] [facility] for a supratherapeutic INR of 13 requiring vitamin K and discontinuation of Coumadin, complicated by bleeding from the nose and from her leg wound and mild hematuria; all that has stopped. A. Acute renal failure on severe chronic kidney disease, requiring initiation of hemodialysis o n 03/28/2016. B. Placement of tunneled hemodialysis catheter in the right internal jugular and biopsy of the right leg wound that was benign with no malignancy or dysplasia 03/28/2016. Also placement of an AV fistula in the l eft arm on 03/28/2016. C. Fall with contusion of the right arm and leg, no fractures, bruising are gradually resolving . 5. Diabetes type 2, insulin requiring. A. Complicated by diabetic nephropathy. B. Controlled as of 04/17/2016. 6. Chronic venous ulcer on the right leg. A. Onset 1995. B. Biopsy on 03/28/2016 showed no evidence of malignancy or dysplasia with benign changes. C. Continues to improve as of 04/17/2016. 7. Hypercholesterolemia. 8. Hypertension. 9. Hypothyroidism. 10. Gastroesophageal reflux. 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 12. Severe arthritis of the knees. 13. Chronic pain from her spondylosis of the LS spine, severe arthritis of the knees to be under the care of Dr. Collado, pain management physician for which she has been on fentanyl and Dilaudid for b reakthrough pain at home in its place. She is using the hydrocodone while in the hospital which seems to be working well. A. Controlled as of 04/17/2016. PLAN: Continue present care. Continue present wound care. Continue physical therapy and continue dialysis Friday, Friday and Friday. Tentatively looking towards going home on 04/19/2016. She will be following back up with her surgeon. We will arrange for her to be rechecked by her cardiolo gist and review long-term needs on anticoagulation.
[2016-04-17] MEDS: Levemir Flexpen 100 UNITS/ML PEN SC SCH (20:56)
[2016-04-17] MEDS: Zolpidem Tartrate 5 MG TAB PO PRN (22:06)
[2016-04-18] MEDS: Levothyroxine Sodium 112 MCG TAB PO SCH (05:25)
[2016-04-18] MEDS: Levothyroxine Sodium 25 MCG TAB PO SCH (05:25)
[2016-04-18] MEDS: Calcium Acetate 667 MG CAP PO SCH ×3 (08:42→17:12)
[2016-04-18] MEDS: Gabapentin 100 MG CAP PO SCH ×3 (08:43→21:00)
[2016-04-18] MEDS: NIFEdipine XL 30 MG TAB PO SCH (08:43)
[2016-04-18] MEDS: Docusate 100 MG CAP PO SCH (08:43)
[2016-04-18] MEDS: HumaLOG 300 UNITS/3 ML VIAL SC PRN ×2 (11:42→17:12)
[2016-04-18] MEDS: HYDROcodone/Acetaminophen 7.5/325 mg Tablet PO PRN ×2 (12:28→21:00)
[2016-04-18] MEDS: fentaNYL 50 mcg/hour Patch TD SCH (21:00)
[2016-04-18] MEDS: Levemir Flexpen 100 UNITS/ML PEN SC SCH (21:02)
[2016-04-18] MEDS: Zolpidem Tartrate 5 MG TAB PO PRN (22:43)
[2016-04-19] MEDS: Levothyroxine Sodium 112 MCG TAB PO SCH (05:34)
[2016-04-19] MEDS: Levothyroxine Sodium 25 MCG TAB PO SCH (05:34)
[2016-04-19] MEDS: NIFEdipine XL 30 MG TAB PO SCH (08:25)
[2016-04-19] MEDS: Calcium Acetate 667 MG CAP PO SCH ×3 (08:25→17:23)
[2016-04-19 08:26] VITALS: BP 183/77
[2016-04-19] MEDS: Docusate 100 MG CAP PO SCH (08:26)
[2016-04-19] MEDS: HumaLOG 300 UNITS/3 ML VIAL SC PRN (08:26)
[2016-04-19] MEDS: Gabapentin 100 MG CAP PO SCH ×2 (08:26→15:51)
[2016-04-19 11:25] VITALS: TEMP 98.5
--- NOTE | 2016-04-19 13:30 | DIS ---
FINAL DIAGNOSES: 1. Generalized weakness and deconditioning. A. Continues to improve as of 04/19/2016. 2. Acute renal failure on severe chronic kidney disease. A. Required initiation of hemodialysis on 03/28/2016 and scheduled to continue this on Friday, Friday, and Friday. B. Complicated by anemia of chronic renal disease for which she received a transfusion of 2 units of blood on 03/28/2016 with dialysis and is receiving Epogen 5000 units with dialysis IV. C. Complicated by hyperparathyroidism for which she is on PhosLo (calcium acetate.). 3. 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 A. On Coumadin for many years and had an inferior vena cava filtration device placed greater than 5 years ago. Coumadin was stopped on 03/20/2016 due to INR of 13 and some nosebleed and mild hematuria and bleeding from her wound on her leg. B. Her anticoagulants have not been restarted due to her recommendations of her double head machine operator. 4. Hospitalization from 03/20/2016 until 04/03/2016 at [facility] for a supratherapeutic INR of 13 requiring vitamin K and discontinuation of Coumadin, complicated by bleeding from the nose and from her leg wound and mild hematuria; all that has stopped. A. Acute renal failure on severe chronic kidney disease, requiring initiation of hemodialysis on 03/28/2016. B. Placement of tunneled hemodialysis catheter in the right internal jugular and biopsy of the right leg wound that was benign with no malignancy or dysplasia 03/28/2016. Also placement of an AV fistula in the left arm on 03/28/2016. C. Fall with contusion of the right arm and leg, no fractures, bruising are gradually resolving. 5. Diabetes type 2, insulin requiring. A. Complicated by diabetic nephropathy. B. Controlled as of 04/17/2016. 6. Chronic venous ulcer on the right leg. A. Onset 1995. B. Biopsy on 03/28/2016 showed no evidence of malignancy or dysplasia with benign changes. C. Continued to heal as of 04/19/2016. 7. Hypercholesterolemia. 8. Hypertension. 9. Hypothyroidism. 10. Gastroesophageal reflux. 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 12. Severe arthritis of the knees. 13. Chronic pain from her spondylosis of the LS spine, severe arthritis of the knees to be under the care of Dr. Collado, pain management physician for which she has been on fentanyl and Dilaudid for breakthrough pain at home in its place. She is using the hydrocodone while in the hospital which seems to be working well. A. Controlled as of 04/19/2016. SUMMARY: The patient is a 70-year-old white female who has a history of type 2 diabetes that is insulin requiring, complicated by diabetic nephropathy, leaving her with a severe chronic renal disease for which she recently was started on hemodialysis through a tunneled right IJ that occurred during her recent admission to [facility] from 03/20/2016 until 04/03/2016. She also has a history of recurrent DVTs and pulmonary embolism for which she has had an inferior vena caval filtration device placed over 5 years ago and she has also been on chronic anticoagulation. She also has a history of severe venous insufficiency of the lower extremities complicated by a venous ulcer of the right lower leg that has been there since 1995. During recent hospitalization this was biopsied which has been done in the past and no evidence of any malignancy seen. The patient entered the hospital at [facility] because of her declining renal function and supratherapeutic INR. The Coumadin was stopped and was not restarted due to her dialysis and the patient underwent placement of a tunneled IJ catheter on the right side for dialysis that was initiated on 03/28/2016. When the IJ was placed on 2015 she also had an AV fistula placed in the left arm. The patient was left very deconditioned and weak and consequently was referred to [facility] on 04/03/2016 for continuation of physical therapy to help improve her general functional capability to help with her deconditioning and for continued care of the venous ulcer on the right lower leg. Her dialysis will be continued as an outpatient on Friday, Friday , Friday, and she will be following up with her double head machine operator, Dr. De La Cruz. HOSPITAL COURSE: The patient was admitted to the hospital and continued on her same medication. She was receiving dialysis on Friday, Friday, Friday. Her right-sided dialysis catheter that was placed as a tunneled IJ site was clean and remained clean throughout the hospitalization with no surrounding redness and apparently functioned well during dialysis, did get a little sluggish but then continued to work well during her last dialysis. She has followed up with her surgeon, Dr. Duran, on the AV fistula and will be seeing her again in follow up. Her diabetes was controlled with diet. She initially was placed back on her usual dose of Levemir, but this was creating some ad operations coordinator hypoglycemic episodes. This was gradually cut back to where she was receiving 12 units and this seemed to work well without the hypoglycemic episodes. Her hemoglobin A1c was 7.2 done on 04/04/2016. Her FBS on the morning of 2016 was 203, on the morning of 04/18/2016 was 128. The patient's INR had corrected prior to her readmission to the hospital here. She is not on anticoagulants and as an outpatient she will review the need for this with her double head machine operator, Dr. De La Cruz, and also her employment representative, Dr. Lane. The venous insufficiency showed excellent control during her hospitalization, particularly since she was resting much more with feet elevated than she usually does at home. She has chronic changes in the leg from venous insufficiency with chronic stasis dermatitis that is controlled, but as a result she has a chronic blue discoloration to the lower extremities, and she has a chronic ulcer. The chronic venous ulcer on the right lower leg showed marked improvement during her admission. Initially the wound measured 1 x 2 cm with a good granulation base and by the time of her discharge, it was down to no more than 7 mm in diameter. The wound was being duct gently clean with saline and then an Aquacel was applied and covered by Mepilex. This will be continued at home. Her general strength improved. Her overall condition improved such that it is felt like she could now be managed at home. She was seen early on the morning of 04/19/2016 and she will be going to dialysis today and then she will plan to be discharged this evening after dialysis. During her hospitalization she received her Fentanyl patch every 3 days, 50 mcg , and also received the hydrocodone/acetaminophen 7.5/325 on an as needed basis. Pain was well controlled. She will follow back up with her pain management doctor. DISPOSITION: Renal diet with consistent carbohydrates. No added salt. ACTIVITIES: Ambulate as tolerated. WOUND CARE: Gently clean the wound on the lower right leg with saline, apply Aquacel and then cover with Mepilex daily. Utilize a moisturizer on the skin of the legs daily and elevate the legs when sitting. Dialysis will be continued 3 days a week on Friday, Friday, and Friday. MEDICATIONS: PhosLo (calcium acetate) 1334 mg t.i.d., Colace 100 mg daily, gabapentin 100 mg t.i.d., hydrocodone 7.5/325 one every 4 hours as needed for pain, Levemir 10 units subcu daily in the evening, levothyroxine 137 mcg daily, Procardia-XL 60 mg daily, pantoprazole 40 mg b.i.d., Ambien 5 mg at bedtime, Procrit 5000 units IV with dialysis, Fentanyl patch 50 mcg daily. FOLLOWUP: The patient will need to continue to follow up with Dr. De La Cruz, her double head machine operator and her dialysis on Friday, Friday and Friday. Follow up with Dr. Duran, her surgeon for the AV fistula in the left arm. Follow up with her chronic pain management doctor, Dr. Collado, for the chronic low back pain. Follow up with Dr. Lane, her employment representative. Follow up with her primary provider in 2 weeks which is MINERVA Garcia or I would be happy to see her in followup in my clinic. CODE STATUS: Full code. MTDD
[2016-04-19] MEDS ORDERED: Sodium Chloride Irrig Solution 250 ML BOT ONE (14:20)
[2016-04-19] MEDS: HYDROcodone/Acetaminophen 7.5/325 mg Tablet PO PRN (15:47)
== END 2016-04-19 17:10 | disposition home health service (06) | DRG 948 ==
LOC: MADMS 15:45
PROVIDERS: ADMIT Family Medicine; ATTEND Family Medicine
DX: R53.1 Weakness (principal); N17.9 Acute kidney failure, unspecified; E11.622 Type 2 diabetes mellitus with other skin ulcer; E11.21 Type 2 diabetes mellitus with diabetic nephropathy; L97.919 Non-pressure chronic ulcer of unspecified part of right lower leg with unspecified severity; Z79.4 Long term (current) use of insulin; Z86.718 Personal history of other venous thrombosis and embolism; D63.1 Anemia in chronic kidney disease; E21.3 Hyperparathyroidism, unspecified; E78.00 Pure hypercholesterolemia, unspecified; E03.9 Hypothyroidism, unspecified; K21.9 Gastro-esophageal reflux disease without esophagitis; M47.897 Other spondylosis, lumbosacral region; M17.0 Bilateral primary osteoarthritis of knee; G89.29 Other chronic pain; Z79.891 Long term (current) use of opiate analgesic; E11.22 Type 2 diabetes mellitus with diabetic chronic kidney disease; I12.9 Hypertensive chronic kidney disease with stage 1 through stage 4 chronic kidney disease, or unspecified chronic kidney disease; N18.9 Chronic kidney disease, unspecified; Z79.899 Other long term (current) drug therapy; Z99.2 Dependence on renal dialysis; S40.021D Contusion of right upper arm, subsequent encounter; S80.11XD Contusion of right lower leg, subsequent encounter; W19.XXXD Unspecified fall, subsequent encounter; Z91.81 History of falling; Z86.711 Personal history of pulmonary embolism; Z79.01 Long term (current) use of anticoagulants
CPT/HCPCS: 36416; 80048; 83036; 85025; 36415-59; G8978-GP-CJ; G8979-GP-CI; J1815; Q0162

== ENCOUNTER 2016-05-29 08:35 | Emergency (ER) | payer MEDICARE ==
[~2016-05-29 08:35] MED LIST: Sodium Chloride 0.9% 100 ML BAG ONE
[2016-05-29 09:25] LABS: #Basophils 0.1 thou/uL (0.0-0.2); #Eosinphils 0.1 thou/uL (0.0-0.7); #Lymphocytes 0.9 thou/uL (1.20-3.40); #Monocytes 0.4 thou/uL (0.11-0.59); #Neutrophils 3.9 thou/uL (1.40-6.50); %Eosinophils 1.2 % (0.0-10.0); %Lymphocytes 16.4 % (21.0-51.0); %Monocytes 7.9 % (0.0-10.0); %Neutrophils 73.5 % (42.0-75.0); Hemoglobin 11.2 g/dL (12.0-16.0); Mean Corpuscular HGB CONC 31.9 g/dL (32.0-36.0); Mean Corpuscular Hemoglobin 31.9 pg (27.0-31.0); Mean Corpuscular Volume 99.9 fl (81.0-99.0); Mean Platelet Volume 6.8 fL (7.4-10.4); Platelet Count 154 thou/uL (130-400); RBC Distribution Width 16.3 % (11.5-14.5); Red Blood Cell (RBC) Count 3.51 mill/uL (4.20-5.40); White Blood Cell (WBC) Count 5.3 thou/uL (4.8-10.8)
[2016-05-29 09:37] LABS: ALT (SGPT) Less than 6 U/L (0-55); AST (SGOT) 18 U/L (5-34); Albumin 3.5 g/dL (3.4-4.8); Alkaline Phosphatase 96 U/L (40-150); Anion Gap 18 mmol/L (10-20); BUN (Urea Nitrogen) 30 mg/dL (9.8-20.1); Bilirubin, Total 0.4 mg/dL (0.2-1.2); Calc. Creatinine Clearance 0 mL/min (70-130); Calcium 9.1 mg/dL (7.8-10.44); Carbon Dioxide 25 mmol/L (23-31); Chloride 104 mmol/L (98-107); Estimated GFR-MDRD 13; Globulin 4.6 g/dL (2.4-3.5); Potassium 4.1 mmol/L (3.5-5.1); Protein, Total 8.1 g/dL (5.8-8.1); Sodium 143 mmol/L (136-145)
[2016-05-29 09:40] LABS: Glucose 41 mg/dL (80-115)
[2016-05-29 09:44] LABS: Bilirubin Negative (Negative); Blood, Urine Moderate (Negative); Clarity Cloudy (Clear); Glucose, Urine (Dipstick) Negative (Negative); Leukocyte Large (Negative); Nitrite Negative (Negative); Protein, Urine (Dipstick) 100 mg/dL (Neg-Trace); Urobilinogen 0.2 mg/dL (0.2-1.0); pH, Urine 7.5 (5.0-9.0)
[2016-05-29 09:48] LABS: Squamous Epithelial 0-3 HPF (0-3)
[2016-05-29 09:49] LABS: Bacteria/HPF Rare-Few HPF (None Seen)
[2016-05-29] MEDS ORDERED: cefTRIAXone\\ROCEPHIN 1 GM VIAL ONE (09:52)
[2016-05-29] MEDS ORDERED: Dextrose 50% Abboject 50 ML SYRINGE ONE (11:12)
== END 2016-05-29 12:16 | disposition home or self-care (01) ==
LOC: MADERS 08:35
DX: E10.649 Type 1 diabetes mellitus with hypoglycemia without coma (principal); I12.9 Hypertensive chronic kidney disease with stage 1 through stage 4 chronic kidney disease, or unspecified chronic kidney disease; N18.9 Chronic kidney disease, unspecified; E78.5 Hyperlipidemia, unspecified; E03.9 Hypothyroidism, unspecified; E78.00 Pure hypercholesterolemia, unspecified; Z79.4 Long term (current) use of insulin; Z79.01 Long term (current) use of anticoagulants; Z79.899 Other long term (current) drug therapy
CPT/HCPCS: 36416; 80053; 81003; 81015; 85025; 87086; 93005; 96374; 96375; J0696; J7050

== ENCOUNTER 2018-03-11 03:01 | Emergency (ER) | payer MEDICARE ==
[2018-03-11] MEDS ORDERED: HYDROcodone/Acetaminophen 5/325 mg Tablet ONE (04:38)
[2018-03-11] MEDS ORDERED: Acetaminophen 325 MG TAB ONE (04:38)
[2018-03-11 06:09] LABS: ALT (SGPT) 22 U/L (8-55); AST (SGOT) 36 U/L (5-34); Albumin 3.2 g/dL (3.4-4.8); Alkaline Phosphatase 127 U/L (40-150); Anion Gap 24 mmol/L (10-20); BUN (Urea Nitrogen) 92 mg/dL (9.8-20.1); Bilirubin, Total 0.6 mg/dL (0.2-1.2); Calc. Creatinine Clearance 0 mL/min (70-130); Calcium 7.9 mg/dL (7.8-10.44); Carbon Dioxide 16 mmol/L (23-31); Chloride 95 mmol/L (98-107); Estimated GFR-MDRD 7; Globulin 4.3 g/dL (2.4-3.5); Glucose 64 mg/dL (83-110); Magnesium 1.7 mg/dL (1.6-2.6); Potassium 4.7 mmol/L (3.5-5.1); Protein, Total 7.5 g/dL (6.0-8.3); Sodium 130 mmol/L (136-145)
[2018-03-11 06:11] LABS: Anisocytosis SLIGHT = 6-15 cells (100X) (0-5/hpf); Band 20 % (5-11); Elliptocytes SLIGHT = 2-5 cells (100X) (0-1/hpf); Eosinophils 1 % (0-10); Hemoglobin 12.9 g/dL (12.0-16.0); Lymphocytes 3 % (21-51); MDiff Complete? YES; Mean Corpuscular HGB CONC 31.6 g/dL (32.0-36.0); Mean Corpuscular Hemoglobin 30.8 pg (27.0-31.0); Mean Corpuscular Volume 97.3 fL (78.0-98.0); Mean Platelet Volume 10.6 fL (7.4-10.4); Neutrophil 76 % (42-75); Platelet Count 43 thou/uL (130-400); Poikilocytosis SLIGHT = 6-15 cells (100X) (0-5/hpf); RBC Distribution Width 17.9 % (11.5-14.5); Red Blood Cell (RBC) Count 4.19 mill/uL (4.20-5.40); Schistocytes SLIGHT = 2-5 cells (100X) (0-1/hpf); Tear Drops SLIGHT = 2-5 cells (100X) (0-1/hpf); Toxic Granulation SLIGHT; Vacuoles MODERATE; White Blood Cell (WBC) Count 7.6 thou/uL (4.8-10.8)
--- NOTE | 2018-03-11 08:14 | RAD ---
FOUR VIEWS OF THE RIGHT KNEE: Comparison: None. History: Fall five days ago with right knee pain. FINDINGS: Four views of the right knee shows severe joint space narrowing in all three compartments. No fractur e or dislocation are seen. Small erosion is seen along the medial aspect of the knee in the distal fe mur. Diffuse soft tissue swelling is seen. IMPRESSION: Severe degenerative changes of the right knee without acute osseous abnormality. POS: MIRIAN
--- NOTE | 2018-03-11 08:15 | RAD ---
TWO VIEWS OF THE LEFT HUMERUS: Comparison: None. History: Fall with left arm pain. FINDINGS: Two views of the left humerus shows no evidence of acute fracture or dislocation. No soft tissue swel ling is seen. No degenerative changes are seen. IMPRESSION: No evidence of acute osseous abnormality. POS: CHRISTIN
[2018-03-11] MEDS ORDERED: Morphine 4 MG/ML VIAL ONE ×2 (08:42→14:07)
== END 2018-03-11 15:06 ==
LOC: MADERS 03:01
DX: M25.561 Pain in right knee (principal); M25.512 Pain in left shoulder; E11.40 Type 2 diabetes mellitus with diabetic neuropathy, unspecified; E78.5 Hyperlipidemia, unspecified; E03.9 Hypothyroidism, unspecified; Z79.899 Other long term (current) drug therapy; Z79.4 Long term (current) use of insulin; I12.9 Hypertensive chronic kidney disease with stage 1 through stage 4 chronic kidney disease, or unspecified chronic kidney disease; N18.9 Chronic kidney disease, unspecified; Z99.2 Dependence on renal dialysis
CPT/HCPCS: 36415; 80053; 83735; 85025; 96372; 96374; J2270